=== PATIENT | male | born 1955 | race Caucasian/White ===

== ENCOUNTER 2018-11-18 14:44 | Inpatient (IN) ==
[2018-11-18] MEDS ORDERED: Ipratropium/Albuterol Neb 3 ML IH ONE ×2 (15:05→16:58)
[2018-11-18 15:41] LABS: Basophils % 0.2 %; Eosinophils % 0.1 %; Hematocrit 38.7 % (37.5-50.1); Hemoglobin 13.4 g/dL (12.9-16.9); Immature Granulocytes % 0.6 % (0-4); Lymphocytes # 1.7 K/mcL (0.6-4.6); Lymphocytes % 14.7 %; Mean Corpuscular HGB Conc 34.6 g/dL (31.6-35.5); Mean Corpuscular Hemoglobin 29.6 pg (28.0-33.3); Mean Corpuscular Volume 85.6 fL (83.0-100.0); Mean Platelet Volume 8.6 fL (9.4-12.4); Monocytes # 0.8 K/mcL (0.0-1.3); Monocytes % 7.1 %; Neutrophils # 9.1 K/mcL (1.6-8.9); Platelet Count 328 K/mcL (140-400); Red Blood Count 4.52 M/mcL (4.19-5.50); Red Cell Distribution Width 13.2 % (11.5-14.5); Segmented Neutrophils % 77.3 %; White Blood Count 11.8 K/mcL (4.3-11.1)
[2018-11-18 15:49] LABS: BUN/Creatinine Ratio 23 (6-26); Blood Urea Nitrogen 25 mg/dL (8-23); Calcium 9.5 mg/dL (8.6-10.3); Carbon Dioxide 24 mEq/L (23-29); Chloride 103 mEq/L (98-107); Glucose 106 mg/dL (70-105); Osmolality,Calculated 289 (280-300); Potassium 3.7 mEq/L (3.5-5.1); Sodium 137 mEq/L (136-145); eGFR For African Americans > 60 (> 60); eGFR For Non-African Americans > 60 (> 60)
--- NOTE | 2018-11-18 16:03 | Emergency Department Note ---
Disposition Clinical Impression: Community acquired pneumonia Qualifiers: Laterality: unspecified laterality Qualified Code(s): J18.9 - Pneumonia, unspecified organism Disposition: Admitted As Inpatient Condition: Good Time of Disposition: 16:55 SOB HPI - General Chief Complaint: ED Shortness of Breath/Dyspnea Stated Complaint: ELISABET Time Seen by Provider: 11/18/18 14:47 Source: patient, other Mode of arrival: ambulatory Limitations: no limitations Nursing Notes Reviewed: Yes Vital Signs Reviewed: Yes - History of Present Illness 63 yo man diagnosed with pneumonia 11/17/18 at [facility] after CXR, CT and lab work, but left AMA after being dissatisfied with doctor's behavior, per patient. [facility] was planning to admit him, per social services manager. He came to ED 11/18/18 for same issue. He endorses SOB w/o fever, N/V/D, TANG, AMS, CP, weakness, LOC, abdominal pain, hemoptysis, sore throat, inability to eat or drink or other symptoms. PMH significant for COPD, repeated hospitalization for PNA, schizophrenia. He has no history of MD, stroke/TIA, chest surgery, clots or bleeding issues. He is a smoker. Patient lives in retirement and is accompanied by his social services manager, Liliana. - Related Data Previous Rx's Medication Instructions Recorded Azithromycin [Azithromycin 6-Tab 250 mg PO PER PKG DI #6 tab 12/11/16 Pack] Benzonatate [Tessalon] 100 mg PO TID PRN 10 Days #20 12/11/16 capsule Allergies Allergy/AdvReac Type Severity Reaction Status Date / Time No Known Allergies Allergy Verified 11/18/18 14:49 All systems ED: reviewed and negative except as stated. Respiratory: Reports: cough, sputum production Past Medical History - Past Medical History Attestation: Yes The following information was validated with the patient. Source: patient, old records reviewed, other (family service worker) Medical history: Reports: COPD - Social History Smoking Status: Current every day smoker Alcohol use: Reports: none Drug use: Reports: none Physical Exam PE Gen: AOx3, NAD HEENT: No lymphadenopathy, no erythema, no edema. Pupils equal and reactive. Cardio: Regular rate and rhythm, no murmur, no peripheral edema, good perfusion to all extremities, no cyanosis Resp: +Diminished breath sounds bilaterally, +coarse breath sounds worse on RLL, +mild wheeze, no cough GI: Abdomen soft, nondistended, nontender to palpation. No ecchymoses, no rash. : No suprapubic tenderness or distention MSK: Normal ROM, no joint swelling or erythema Neuro: CNI-XII intact, strength and sensation WNL Psych: Appropriate affect - General General appearance: alert, in no apparent distress Course Course Narrative: VS stable, SpO2 mid 80s on RA. Put on 2L NC and given Duo Neb. BMP, CBC, CXR ordered. Attempting to get records from [place]. Vital Signs Temperature 97.6 F 11/18/18 14:47 Pulse Rate 80 11/18/18 14:47 Respiratory Rate 16 11/18/18 14:47 Blood Pressure 142/84 11/18/18 14:47 O2 Sat by Pulse Oximetry 90 11/18/18 14:47 Temperature 97.6 F 11/18/18 14:54 Pulse Rate 72 11/18/18 17:12 Respiratory Rate 20 11/18/18 17:12 Blood Pressure 142/90 11/18/18 17:12 O2 Sat by Pulse Oximetry 93 11/18/18 17:12 Oxygen Delivery Oxygen Delivery Nasal Cannula Shortness of Breath/Dyspnea - [facility] Narrative Medical decision making narrative: VS stable apart from O2 in mid-high 80s. Patient comfortable. Labs unremarkable. CXR consistent with bibasilar pneumonia. Gave 2g Rocephin and 500mg azit hromycin IV, along with another Duo Neb treatment and increased to 4L NC. Procalcitonin ordered per hospitalist request. Records from [place] indicated areas of unusual density along stomach wall and kidney that need further evaluation. Patient agreed with plan for admission and so did hospitalist. - Medical Records Medical records reviewed: Yes I reviewed the patient's medical records. - Lab Data Lab results reviewed: Yes I reviewed the patient's lab results. Result diagrams: 11/18/18 15:05 11/18/18 15:05 Lab Results 11/18/18 11/18/18 Range/Units 15:05 15:05 WBC 11.8 H (4.3-11.1) K/mcL RBC 4.52 (4.19-5.50) M/mcL Hgb 13.4 (12.9-16.9) g/dL Hct 38.7 (37.5-50.1) % MCV 85.6 (83.0-100.0) fL MCH 29.6 (28.0-33.3) pg MCHC 34.6 (31.6-35.5) g/dL RDW 13.2 (11.5-14.5) % Plt Count 328 (140-400) K/mcL MPV 8.6 L (9.4-12.4) fL Immature Gran % 0.6 (0-4) % Seg Neutrophils % 77.3 % Lymphocytes % 14.7 % Monocytes % 7.1 % Eosinophils % 0.1 % Basophils % 0.2 % Neutrophils # 9.1 H (1.6-8.9) K/mcL Lymphocytes # 1.7 (0.6-4.6) K/mcL Monocytes # 0.8 (0.0-1.3) K/mcL Eosinophils # 0.0 (0.0-0.6) K/mcL Basophils # 0.0 (0.0-0.2) K/mcL Sodium 137 (136-145) mEq/L Potassium 3.7 (3.5-5.1) mEq/L Chloride 103 (98-107) mEq/L Carbon Dioxide 24 (23-29) mEq/L BUN 25 H (8-23) mg/dL Creatinine 1.10 (0.70-1.30) mg/dL Est GFR ( Amer) > 60 (> 60) Est GFR (Non-Af Amer) > 60 (> 60) BUN/Creatinine Ratio 23 (6-26) Glucose 106 H (70-105) mg/dL Calculated Osmolality 289 (280-300) Calcium 9.5 (8.6-10.3) mg/dL - Radiology Data Radiology results reviewed: Yes I reviewed the patient's radiology results. Chest X-Ray 11/18/18 15:08 IMPRESSION: Bibasilar atelectasis versus pneumonia D/ / John Sibley MD / John Sibley MD Interpreting Provider: John Sibley MD
[2018-11-18] MEDS ORDERED: cefTRIAXone 2,000 MG in Water for inj. (sterile) 20 ML IVP ONE (16:50)
[2018-11-18] MEDS ORDERED: Azithromycin 500 MG in 0.9 % Sodium Chloride 250 ML IVPB ONE (17:42)
--- NOTE | 2018-11-18 17:43 | Internal Med History&Physical ---
Date of Encounter: 11/18/18 Time of Encounter: 17:42 Internal Medicine - H&P: HPI Chief complaint: Shortness of breath History of present illness: Mr. French is a 63 year old male with a PMHx of COPD, recurrent pneumonias and schizophrenia who presents with a 6-7 day history of fever, chills, cough productive of yellow sputum and progressively worsening shortness of breath. Patient was seen at the [facility] yesterday 11/17/2018 where chest x-ray and CT confirmed pneumonia. Patient however refused hospitalization at the [facility] because he did not like how he was being treated. He reported to the [facility] ED in the company of a social economist to seek further care for his pneumonia. He states that he always requires hospitalization when he gets a pneumonia but has never required intubation and ICU admission. He continues to smoke cigarettes on a daily basis. Past Med Surg Social Fam HX - Past Medical History Medical history: COPD Additional medical history: PNA - Past Surgical History Additional surgical history: left chest surgery - Social History Smoking Status: Current every day smoker Alcohol use: none Drug use: none - Additional Family History Additional family history: Reviewed and noncontributory. Internal Medicine - H&P: Meds Azithromycin [Azithromycin 6-Tab Pack] 250 mg PO PER PKG DI #6 tab 12/11/16 [Rx] Benzonatate [Tessalon] 100 mg PO TID PRN 10 Days #20 capsule 12/11/16 [Rx] Allergy/AdvReac Type Severity Reaction Status Date / Time No Known Allergies Allergy Verified 11/18/18 14:49 All Systems PM: A 10-system review of systems was performed and is negative for pertinent findings except as documented above in the HPI. Review of systems: GENERAL: Admits fever and chills HEENT: No rhinorrhea, No sore throat, No ear pain or discharge, No dysphagia or odynophagia PULMONARY: Admits productive cough and dyspnea on exertion CARDIOVASCULAR: No chest pain, no palpitations, No PND, No orthopnea GASTROINTESTINAL: No abdominal pain, No nausea, No vomiting, No constipation, No diarrhea, No hematemesis, No hematochezia MUSKULOSKELETAL: No edema, No swelling, No pain INTEGUMENTARY: No new skin lesions NERVOUS SYSTEM: No Dizziness, No weakness, No slurred speech, No diplopia or blurred/ loss vision, No numbness, No tinglng sensation. - Constitutional Vitals: Temp Pulse Resp BP Pulse Ox 36.4 C 72 20 142/90 93 11/18/18 14:54 11/18/18 17:12 11/18/18 17:12 11/18/18 17:12 11/18/18 17:12 Exam: GENERAL: Not in distress. Alert and Oriented HEENT: EOMI, PERRLA MOUTH: Dry oral mucosa NECK:No JVD, No lymph nodes. CHEST AND LUNGS: Reduced air entry in both lung bases. No crackles or wheezes appreciated HEART: S1 and S2 normal, no murmurs ABDOMEN: Soft, nontender, no organomegaly SKIN: Normal color, no rahses, no lesions EXTREMITIES: No deformity, no edema, no tenderness, no joint swelling or clubbing NEUROLOGICAL: Normal cognition, normal motor and sensory exam. Internal Med - H&P Results - Labs CBC & Chem 7: 11/18/18 15:05 11/18/18 15:05 Labs: Short CBC 11/18/18 Range/Units 15:05 WBC 11.8 H (4.3-11.1) K/mcL Hgb 13.4 (12.9-16.9) g/dL Hct 38.7 (37.5-50.1) % Plt Count 328 (140-400) K/mcL Neutrophils # 9.1 H (1.6-8.9) K/mcL BMP 11/18/18 15:05 Sodium 137 Potassium 3.7 Chloride 103 Carbon Dioxide 24 BUN 25 H Creatinine 1.10 Glucose 106 H Calcium 9.5 - Impressions ITS Impressions Chest X-Ray 11/18/18 15:08 IMPRESSION: Bibasilar atelectasis versus pneumonia D/ / John Sibley MD / John Sibley MD Interpreting Provider: John Sibley MD - Assessment and Plan (1) Acute respiratory failure with hypoxia Current Visit: Yes Status: Acute Assessment and plan: Patient has COPD but does not usually require O2. He was saturating at 88% on 2L in ED. Saturation improved with increase in flow rate to 4L/Min Most likely due to underlying pneumonia. Will treat pneumonia and titrate oxygen to keep saturation above 92%. (2) Pneumonia Current Visit: Yes Status: Acute Assessment and plan: Patient presented with a 1 week duration of fever, chills, productive cough. He was seen in the [place] yesterday and was told he needed to be admitted for management of her pneumonia but patient refuses admission. Chest x-ray which I personally reviewed shows an opacity in the left lower lobe suspicious for pneumonia. There also seems to be an interstitial infiltrate in the right middle lobe. WBC 11.8. Score of 2 on CURB 63 for age and uremia. We will treat as community-acquired pneumonia with ceftriaxone and azithromycin Given single doses of each in the ER. Qualifiers: Pneumonia type: due to unspecified organism Laterality: left Lung location: lower lobe of lung Qualified Code(s): J18.1 - Lobar pneumonia, unspecified organism (3) COPD exacerbation Current Visit: Yes Status: Acute Assessment and plan: Patient with a history of COPD has been experiencing worsening shortness of breath and cough with production of thick yellow sputum. Chest x-ray shows hyperinflation and emphysematous changes. No wheezes appreciated on exam. We will give when necessary breathing treatments Azithromycin May consider steroid. (4) Dehydration Current Visit: Yes Status: Acute Assessment and plan: Patient has dry oral mucosa physical exam with a BUN of 25, labs BUN creatinine ratio of 23 We will give gentle hydration. (5) DVT prophylaxis Current Visit: Yes Status: Acute Assessment and plan: Subcutaneous heparin - Time Spent With Patient Total time spent is greater than 50% in coordination of care (as documented) at patient's floor/unit and/or counseling patient:
--- NOTE | 2018-11-18 17:44 | Emergency Department Note ---
Disposition Clinical Impression: Community acquired pneumonia Disposition: Admitted As Inpatient Condition: Good Time of Disposition: 16:50 General Adult HPI - General Chief complaint: ED Shortness of Breath/Dyspnea Stated complaint: ELISABET Time Seen by Provider: 11/18/18 14:47 Source: patient, other Mode of arrival: ambulatory Limitations: no limitations - History of Present Illness Pain Scale: 0 - Related Data Home Medications Medication Instructions Recorded Confirmed Albuterol Sulfate [Proair Hfa] 2 puff IH Q4H PRN 11/18/18 11/18/18 Budesonide/Formoterol 160/4.5 2 puff PO BID 11/18/18 11/18/18 [Symbicort 160/4.5] Cetirizine HCl [Allergy Relief] 10 mg PO DAILY PRN 11/18/18 11/18/18 Clotrimazole 1 appl TP BID 11/18/18 11/18/18 Fluticasone Propionate Nasal 50 mcg NS BID 11/18/18 11/18/18 [Flonase] Gabapentin [Neurontin] 600 mg PO TID 11/18/18 11/18/18 Ipratropium/Albuterol Neb [Duoneb] 3 ml IH TID PRN 11/18/18 11/18/18 Naproxen [Naprosyn] 500 mg PO BID 11/18/18 11/18/18 Propranolol [Inderal] 10 mg PO BID 11/18/18 11/18/18 Tamsulosin HCl [Flomax] 0.4 mg PO DAILY 11/18/18 11/18/18 Allergies Allergy/AdvReac Type Severity Reaction Status Date / Time No Known Allergies Allergy Verified 11/18/18 14:49 Respiratory: Reports: cough, sputum production Past Medical History - Past Medical History Medical history: Reports: COPD - Social History Smoking Status: Current every day smoker Alcohol use: Reports: none Drug use: Reports: none Physical Exam - General Limitations: no limitations General appearance: alert, in no apparent distress Course Vital Signs Temperature 97.6 F 11/18/18 14:47 Pulse Rate 80 11/18/18 14:47 Respiratory Rate 16 11/18/18 14:47 Blood Pressure 142/84 11/18/18 14:47 O2 Sat by Pulse Oximetry 90 11/18/18 14:47 Temperature 97.9 F 11/19/18 19:20 Pulse Rate 83 11/19/18 19:20 Respiratory Rate 18 11/19/18 15:20 Blood Pressure 145/87 11/19/18 19:20 O2 Sat by Pulse Oximetry 90 11/19/18 15:35 Oxygen Delivery Oxygen Delivery Nasal Cannula Medical Decision Making - Lab Data Result diagrams: 11/19/18 04:40 11/19/18 04:40 Lab Results 11/18/18 11/18/18 11/18/18 Range/Units 15:05 15:05 17:41 WBC 11.8 H (4.3-11.1) K/mcL RBC 4.52 (4.19-5.50) M/mcL Hgb 13.4 (12.9-16.9) g/dL Hct 38.7 (37.5-50.1) % MCV 85.6 (83.0-100.0) fL MCH 29.6 (28.0-33.3) pg MCHC 34.6 (31.6-35.5) g/dL RDW 13.2 (11.5-14.5) % Plt Count 328 (140-400) K/mcL MPV 8.6 L (9.4-12.4) fL Immature Gran % 0.6 (0-4) % Seg Neutrophils % 77.3 % Lymphocytes % 14.7 % Monocytes % 7.1 % Eosinophils % 0.1 % Basophils % 0.2 % Neutrophils # 9.1 H (1.6-8.9) K/mcL Lymphocytes # 1.7 (0.6-4.6) K/mcL Monocytes # 0.8 (0.0-1.3) K/mcL Eosinophils # 0.0 (0.0-0.6) K/mcL Basophils # 0.0 (0.0-0.2) K/mcL Sodium 137 (136-145) mEq/L Potassium 3.7 (3.5-5.1) mEq/L Chloride 103 (98-107) mEq/L Carbon Dioxide 24 (23-29) mEq/L BUN 25 H (8-23) mg/dL Creatinine 1.10 (0.70-1.30) mg/dL Est GFR ( Amer) > 60 (> 60) Est GFR (Non-Af Amer) > 60 (> 60) BUN/Creatinine Ratio 23 (6-26) Glucose 106 H (70-105) mg/dL Calculated Osmolality 289 (280-300) Calcium 9.5 (8.6-10.3) mg/dL Procalcitonin 0.03 (0.00-0.15) ng/mL 11/19/18 11/19/18 Range/Units 04:40 04:40 WBC 9.7 (4.3-11.1) K/mcL RBC 4.37 (4.19-5.50) M/mcL Hgb 12.6 L (12.9-16.9) g/dL Hct 37.2 L (37.5-50.1) % MCV 85.1 (83.0-100.0) fL MCH 28.8 (28.0-33.3) pg MCHC 33.9 (31.6-35.5) g/dL RDW 13.2 (11.5-14.5) % Plt Count 292 (140-400) K/mcL MPV 8.7 L (9.4-12.4) fL Immature Gran % 0.5 (0-4) % Seg Neutrophils % 79.5 % Lymphocytes % 12.9 % Monocytes % 6.5 % Eosinophils % 0.3 % Basophils % 0.3 % Neutrophils # 7.7 (1.6-8.9) K/mcL Lymphocytes # 1.3 (0.6-4.6) K/mcL Monocytes # 0.6 (0.0-1.3) K/mcL Eosinophils # 0.0 (0.0-0.6) K/mcL Basophils # 0.0 (0.0-0.2) K/mcL Sodium 137 (136-145) mEq/L Potassium 3.9 (3.5-5.1) mEq/L Chloride 105 (98-107) mEq/L Carbon Dioxide 23 (23-29) mEq/L BUN 21 (8-23) mg/dL Creatinine 0.93 (0.70-1.30) mg/dL Est GFR ( Amer) > 60 (> 60) Est GFR (Non-Af Amer) > 60 (> 60) BUN/Creatinine Ratio 23 (6-26) Glucose 101 (70-105) mg/dL Calculated Osmolality 287 (280-300) Calcium 8.7 (8.6-10.3) mg/dL Procalcitonin (0.00-0.15) ng/mL Attestation Statement - Attestation Attestation: I examined this patient and my medical decision-making was reviewed with the Resident Physician. I agree with the documented findings, disposition and treatment plan as described except to the extent set forth below. Patient 63-year-old gentleman who presents to the emergency department with chief complaint of pneumonia. The patient was seen in the [facility] and was found to have pneumonia yesterday. The patient had a disagreement with the provider at the [facility] and opted to leave the [facility] AGAINST MEDICAL ADVICE. The patient presents to our facility wanting to be treated for his pneumonia the patient agrees to stay in the hospital at this time. Exam the patient is awake alert in no acute distress requiring subluminal oxygen to maintain his oxygen saturations at 90 Medical decision management records were reviewed from the [facility] patient was started on Rocephin and Zithromax in the ER and the patient will be admitted to the hospitalist service
[2018-11-18] MEDS ORDERED: Naloxone 0.4 MG/ML INJ IVP PRN (18:27)
[2018-11-18] MEDS ORDERED: 0.9 % Sodium Chloride 500 ML IVC SCH (18:30)
[2018-11-18] MEDS: *HR* Heparin 5,000 UNIT/ML VIAL SQ SCH (22:32)
[2018-11-18] MEDS ORDERED: Ipratropium/Albuterol Neb 3 ML IH PRN (23:09)
[2018-11-19 05:39] LABS: Basophils % 0.3 %; Eosinophils % 0.3 %; Hematocrit 37.2 % (37.5-50.1); Hemoglobin 12.6 g/dL (12.9-16.9); Immature Granulocytes % 0.5 % (0-4); Lymphocytes # 1.3 K/mcL (0.6-4.6); Lymphocytes % 12.9 %; Mean Corpuscular HGB Conc 33.9 g/dL (31.6-35.5); Mean Corpuscular Hemoglobin 28.8 pg (28.0-33.3); Mean Corpuscular Volume 85.1 fL (83.0-100.0); Mean Platelet Volume 8.7 fL (9.4-12.4); Monocytes # 0.6 K/mcL (0.0-1.3); Monocytes % 6.5 %; Neutrophils # 7.7 K/mcL (1.6-8.9); Platelet Count 292 K/mcL (140-400); Red Blood Count 4.37 M/mcL (4.19-5.50); Red Cell Distribution Width 13.2 % (11.5-14.5); Segmented Neutrophils % 79.5 %; White Blood Count 9.7 K/mcL (4.3-11.1)
[2018-11-19 05:58] LABS: BUN/Creatinine Ratio 23 (6-26); Blood Urea Nitrogen 21 mg/dL (8-23); Calcium 8.7 mg/dL (8.6-10.3); Carbon Dioxide 23 mEq/L (23-29); Chloride 105 mEq/L (98-107); Glucose 101 mg/dL (70-105); Osmolality,Calculated 287 (280-300); Potassium 3.9 mEq/L (3.5-5.1); Sodium 137 mEq/L (136-145); eGFR For African Americans > 60 (> 60); eGFR For Non-African Americans > 60 (> 60)
[2018-11-19] MEDS: *HR* Heparin 5,000 UNIT/ML VIAL SQ SCH ×3 (06:04→21:20)
--- NOTE | 2018-11-19 12:11 | Internal Med Progress Note ---
Hospitalist Progress Note - Encounter Date of Encounter: 11/19/18 Time of Encounter: 08:30 - Subjective Interval History: No acute events overnight. Patient states that SOB is improving but still requires oxygen to keep his saturation up. He admits productive cough but denies fever and chills. - Exam Vitals: Temp Pulse Resp BP Pulse Ox 36.6 C 76 18 151/91 92 11/19/18 11:49 11/19/18 11:49 11/19/18 11:49 11/19/18 11:49 11/19/18 07:44 Exam: GENERAL: Not in distress. Alert and Oriented HEENT: EOMI, PERRLA MOUTH: Moist oral mucosa NECK:No JVD, No lymph nodes. CHEST AND LUNGS: Reduced air entry in both lung bases. No crackles or wheezes appreciated HEART: S1 and S2 normal, no murmurs ABDOMEN: Soft, nontender, no organomegaly SKIN: Normal color, no rahses, no lesions EXTREMITIES: No deformity, no edema, no tenderness, no joint swelling or clubbing NEUROLOGICAL: Normal cognition, normal motor and sensory exam. - Assessment and Plan (1) Acute respiratory failure with hypoxia Current Visit: Yes Status: Acute Assessment and Plan: Saturating 97% on 5L via oxy mask at time of encounter. He however states that SOB is improving. Will continue to moitor and titrate O2 as needed. (2) Pneumonia Current Visit: Yes Status: Acute Assessment and Plan: WBC 9.7 this morning Patient states SOB is improving No fever overnight Continue antibiotics. (3) COPD exacerbation Current Visit: Yes Status: Acute Assessment and Plan: No wheezes on exam this morning Chest x-ray showed hyperinflation and emphysematous changes. On when necessary breathing treatments Azithromycin (4) Dehydration Current Visit: Yes Status: Resolved Assessment and Plan: Moist oral mucosa this morning BUN 21<25 Encourage liberal oral fluids. (5) DVT prophylaxis Current Visit: Yes Status: Acute Assessment and Plan: Subcutaneous heparin - Time Spent with Patient Total time spent is greater than 50% in coordination of care (as documented) at patient's floor/unit and/or counseling patient: Internal Medicine: Result - Labs CBC & Chem 7: 11/19/18 04:40 11/19/18 04:40 Labs: Short CBC 11/18/18 11/19/18 Range/Units 15:05 04:40 WBC 11.8 H 9.7 (4.3-11.1) K/mcL Hgb 13.4 12.6 L (12.9-16.9) g/dL Hct 38.7 37.2 L (37.5-50.1) % Plt Count 328 292 (140-400) K/mcL Neutrophils # 9.1 H 7.7 (1.6-8.9) K/mcL BMP 11/18/18 11/19/18 15:05 04:40 Sodium 137 137 Potassium 3.7 3.9 Chloride 103 105 Carbon Dioxide 24 23 BUN 25 H 21 Creatinine 1.10 0.93 Glucose 106 H 101 Calcium 9.5 8.7 - Impressions Impressions Chest X-Ray 11/18/18 15:08 IMPRESSION: Bibasilar atelectasis versus pneumonia D/ / John Sibley MD / John Sibley MD Interpreting Provider: John Sibley MD Consult Discharge Plan - Plan [facility]errals: [facility] [Primary Care Provider] - (2) Pneumonia Qualifiers: Pneumonia type: due to unspecified organism Laterality: left Lung location: lower lobe of lung Qualified Code(s): J18.1 - Lobar pneumonia, unspecified organism
[2018-11-19] MEDS ORDERED: Loratadine 10 MG TABLET PO PRN (12:19)
[2018-11-19] MEDS: Gabapentin 300 MG CAPSULE PO SCH ×2 (14:41→20:57)
[2018-11-19] MEDS ORDERED: Azithromycin 500 MG in 0.9 % Sodium Chloride 250 ML IVPB SCH (17:00)
[2018-11-19] MEDS ORDERED: cefTRIAXone 2,000 MG in Water for inj. (sterile) 20 ML IVP SCH (17:00)
[2018-11-19] MEDS: Fluticasone Propionate Nasal 50 MCG/SPRAY BOTTLE NS SCH (20:57)
[2018-11-20] MEDS: *HR* Heparin 5,000 UNIT/ML VIAL SQ SCH (06:30)
[2018-11-20 07:15] LABS: Basophils % 0.3 %; Eosinophils # 0.1 K/mcL (0.0-0.6); Hematocrit 37.4 % (37.5-50.1); Hemoglobin 12.8 g/dL (12.9-16.9); Immature Granulocytes % 0.8 % (0-4); Lymphocytes # 1.5 K/mcL (0.6-4.6); Lymphocytes % 19.1 %; Mean Corpuscular HGB Conc 34.2 g/dL (31.6-35.5); Mean Corpuscular Hemoglobin 29.6 pg (28.0-33.3); Mean Corpuscular Volume 86.4 fL (83.0-100.0); Mean Platelet Volume 8.7 fL (9.4-12.4); Monocytes # 0.7 K/mcL (0.0-1.3); Monocytes % 9.2 %; Neutrophils # 5.5 K/mcL (1.6-8.9); Platelet Count 294 K/mcL (140-400); Red Blood Count 4.33 M/mcL (4.19-5.50); Segmented Neutrophils % 69.6 %; White Blood Count 7.8 K/mcL (4.3-11.1)
[2018-11-20 07:26] LABS: BUN/Creatinine Ratio 18 (6-26); Blood Urea Nitrogen 18 mg/dL (8-23); Calcium 9.1 mg/dL (8.6-10.3); Carbon Dioxide 26 mEq/L (23-29); Chloride 104 mEq/L (98-107); Glucose 99 mg/dL (70-105); Osmolality,Calculated 284 (280-300); Potassium 4.2 mEq/L (3.5-5.1); Sodium 136 mEq/L (136-145); eGFR For African Americans > 60 (> 60); eGFR For Non-African Americans > 60 (> 60)
[2018-11-20 07:30] VITALS: BP 148/92
[2018-11-20] MEDS: Gabapentin 300 MG CAPSULE PO SCH (09:08)
[2018-11-20] MEDS: Fluticasone Propionate Nasal 50 MCG/SPRAY BOTTLE NS SCH (09:22)
--- NOTE | 2018-11-20 10:18 | Discharge Summary ---
Date of Encounter: 11/20/18 Time of Encounter: 08:00 - Discharge Diagnosis (1) Acute respiratory failure with hypoxia Priority: Primary Status: Acute (2) Pneumonia Priority: Secondary Status: Acute Qualifiers: Pneumonia type: due to unspecified organism Laterality: left Lung location: lower lobe of lung Qualified Code(s): J18.1 - Lobar pneumonia, unspecified organism (3) COPD exacerbation Priority: Secondary Status: Acute (4) Dehydration Priority: Secondary Status: Resolved (5) DVT prophylaxis Priority: Secondary Status: Acute Hospital course: Mr. French is a 63 year old male with a PMHx of COPD, recurrent pneumonias and schizophrenia who presented with a week's history of fever, chills, cough productive of yellow sputum and progressively worsening shortness of breath. He was managed for community-acquired pneumonia and showed improvement on IV antibiotics as well as breathing treatments for COPD exacerbation. Patient will be discharged on oral antibiotics and follow-up with his primary care doctor as outpatient. Discharge discussed with: patient, case management - Time Spent with Patient Total time spent providing and/or coordinating discharge services: Time spent: Greater than 30 minutes (45) - Discharge Medications Prescriptions: New Cefuroxime Axetil [Cefuroxime] 500 mg PO BID #10 tablet Benzonatate [Tessalon] 200 mg PO TID #9 capsule Azithromycin [Zithromax Tri-Omero] 500 mg PO DAILY #3 tablet Continued Propranolol [Inderal] 10 mg PO BID Naproxen [Naprosyn] 500 mg PO BID Gabapentin [Neurontin] 600 mg PO TID Fluticasone Propionate Nasal [Flonase] 50 mcg NS BID Clotrimazole 1 appl TP BID Cetirizine HCl [Allergy Relief] 10 mg PO DAILY PRN PRN Reason: ALLERGY & COLD SYMPTOMS Budesonide/Formoterol 160/4.5 [Symbicort 160/4.5] 2 puff PO BID Albuterol Sulfate [Proair Hfa] 2 puff IH Q4H PRN PRN Reason: Shortness Of Breath Ipratropium/Albuterol Neb [Duoneb] 3 ml IH TID PRN PRN Reason: Shortness Of Breath Tamsulosin HCl [Flomax] 0.4 mg PO DAILY Home Medications: Albuterol Sulfate [Proair Hfa] 2 puff IH Q4H PRN 11/18/18 [History] Budesonide/Formoterol 160/4.5 [Symbicort 160/4.5] 2 puff PO BID 11/18/18 [History] Cetirizine HCl [Allergy Relief] 10 mg PO DAILY PRN 11/18/18 [History] Clotrimazole 1 appl TP BID 11/18/18 [History] Fluticasone Propionate Nasal [Flonase] 50 mcg NS BID 11/18/18 [History] Gabapentin [Neurontin] 600 mg PO TID 11/18/18 [History] Ipratropium/Albuterol Neb [Duoneb] 3 ml IH TID PRN 11/18/18 [History] Naproxen [Naprosyn] 500 mg PO BID 11/18/18 [History] Propranolol [Inderal] 10 mg PO BID 11/18/18 [History] Tamsulosin HCl [Flomax] 0.4 mg PO DAILY 11/18/18 [History] Azithromycin [Zithromax Tri-Omero] 500 mg PO DAILY #3 tablet 11/20/18 [Rx] Benzonatate [Tessalon] 200 mg PO TID #9 capsule 11/20/18 [Rx] Cefuroxime Axetil [Cefuroxime] 500 mg PO BID #10 tablet 11/20/18 [Rx] Allergies/Adverse Reactions: Allergy/AdvReac Type Severity Reaction Status Date / Time No Known Allergies Allergy Verified 11/18/18 14:49 Date of admission: 11/19/18 14:19 Primary care physician: PCP [place] Consults: 11/18/18 18:54 Consult to Display Trimmer [CONS] Routine Reason for Consult: from [facility] - Constitutional Vitals: Temp Pulse Resp BP Pulse Ox 36.7 C 79 16 148/92 96 11/20/18 07:27 11/20/18 05:30 11/20/18 07:27 11/20/18 07:27 11/20/18 09:17 Exam: GENERAL: Not in distress. Alert and Oriented HEENT: EOMI, PERRLA MOUTH: Moist oral mucosa NECK:No JVD, No lymph nodes. CHEST AND LUNGS: CTAB HEART: S1 and S2 normal, no murmurs ABDOMEN: Soft, nontender, no organomegaly SKIN: Normal color, no rahses, no lesions EXTREMITIES: No deformity, no edema, no tenderness, no joint swelling or clubbing NEUROLOGICAL: Normal cognition, normal motor and sensory exam. - Patient Status Disposition: Home, Self-Care Condition: Good Functional capacity at discharge: independent ambulation Overall status at discharge: patient is progressing back to baseline - Discharge Instructions Follow Up With: [facility] [Primary Care Provider] - - Diet and Activity Activity: resume usual activities as tolerated Diet: advance to your usual diet
--- NOTE | 2018-11-22 08:50 | Electrocardiograph Report ---
[place] [id number] Test Date: 2018-11-18 Pat Name: Filemon French Department: [id number] Room: [facility] Gender: M [employer] Accessory Installer: : 1955 Requested By: Guy Carlos Order Number: [id number] Reading MD: Cyril Li Measurements Intervals [place] Rate: 73 P: 71 ID: [id number] QRS: 49 QRSD: 94 T: 72 QT: 411 QTc: 453 Interpretive Statements Sinus rhythm Electronically Signed On 11-22-2018 8:49:11 EDT by Cyril Li
== END 2018-11-20 13:56 | disposition home or self-care (01) | DRG 193 ==
LOC: EMEROOARM 14:44 → 2NENU 14:44 → SUATTDRO 16:57 → 2NENU 18:30
PROVIDERS: ADMIT Internal Medicine; ATTEND Internal Medicine